=== PATIENT | male | born 1935 | race Caucasian/White ===

== ENCOUNTER 2017-11-16 09:08 | Emergency (ER) | payer MEDICARE, BC ==
[2017-11-16] MEDS ORDERED: Sodium Chloride 0.9% 1,000 ML IV ONE (09:22)
[2017-11-16 09:29] VITALS: BMI 27.1
[2017-11-16 09:37] VITALS: TEMP 98.3
--- NOTE | 2017-11-16 09:53 | C.PDOC ---
History Of Present Illness 82-year-old male, presents to the emergency department via BLS with complaints of bilateral nose bleed. As per , patient has a Hx of dementia and had a nose bleed this morning. Patient received the flu shot and has not been acting himself since. (-) fever Time Seen by Provider: 11/16/17 09:10 Chief Complaint (Nursing): ENT Problem History Per: Patient History/Exam Limitations: no limitations Current Symptoms Are (Timing): Still Present Severity: Mild Past Medical History Reviewed: Historical Data, Nursing Documentation, Vital Signs Vital Signs: Last Vital Signs Temp 98.3 F 11/16/17 09:15 Pulse 98 H 11/16/17 09:15 Resp 18 11/16/17 09:15 BP 126/71 11/16/17 09:15 Pulse Ox 99 11/16/17 09:15 - Medical History PMH: Dementia, Pneumonia, TIA (5 years ago) Surgical History: Appendectomy Family History: States: No Known Family Hx - Social History Hx Tobacco Use: No Hx Alcohol Use: No Hx Substance Use: No - Immunization History Hx Tetanus Toxoid Vaccination: No Hx Influenza Vaccination: Yes Hx Pneumococcal Vaccination: Yes Review Of Systems Constitutional: Negative for: Fever Genitourinary: Negative for: Dysuria Physical Exam - Physical Exam Appears: Non-toxic, No Acute Distress Skin: Warm, Dry, No Rash Head: Atraumatic, Normacephalic Eye(s): bilateral: Normal Inspection, PERRL, EOMI Nose: Epistaxis Oral Mucosa: Moist Lips: Normal Appearing Throat: Other (no blood visualized in posterior oropharynx) Neck: Normal ROM Cardiovascular: Rhythm Regular, No Murmur Respiratory: Normal Breath Sounds, No Accessory Muscle Use Gastrointestinal/Abdominal: Normal Exam Back: Normal Inspection Extremity: Normal ROM, No Deformity Neurological/Psych: Oriented x3, Normal Speech Gait: Unable To Assess ED Course And Treatment - Laboratory Results Result Diagrams: 11/16/17 09:59 11/16/17 09:59 Lab Interpretation: Normal ECG: Interpreted By Me ECG Rhythm: Sinus Rhythm, 1st Degree HB ECG Interpretation: No Acute Changes Rate From EC O2 Sat by Pulse Oximetry: 99 Pulse Ox Interpretation: Normal (RA) - Radiology CXR: Interpreted by Me CXR Interpretation: Yes: No Acute Disease Progress Note: Treated with IVF NSS. Treated with rocephin IV. On re- evaluation lungs clear Reassessment Condition: Unchanged Disposition Counseled Patient/Family Regarding: Studies Performed, Diagnosis, Need For Followup, Rx Given - Disposition Referrals: Stevie Link MD [Staff Provider] - Disposition: HOME/ ROUTINE Disposition Time: 12:10 Condition: GOOD Additional Instructions: Follow up with your PMD for further evaluation Prescriptions: Sulfamethoxazole/Trimethoprim [Bactrim DS 800 mg-160 mg] 1 tab PO BID #14 tab Instructions: Urinary Tract Infections in Adults, Nosebleeds Forms: [employer] (Yoruba) - POA Present On Arrival: None - Clinical Impression Clinical Impression: Flu-like symptoms, UTI (urinary tract infection) - Scribe Statement The provider has reviewed the documentation as recorded by the Scribe (Gema Johnson) All medical record entries made by the Scribe were at my direction and personally dictated by me. I have reviewed the chart and agree that the record accurately reflects my personal performance of the history, physical exam, medical decision making, and the department course for this patient. I have also personally directed, reviewed, and agree with the discharge instructions and disposition.
[2017-11-16 10:13] LABS: BASO % 0.5 % (0.0-2.0); EOS % 0.8 % (0.0-4.0); HEMOGLOBIN 13.8 g/dL (12.0-18.0); LYMPH % 61.2 % (20.0-40.0); MEAN CELL VOLUME 81.7 fL (80.0-94.0); MEAN CORPUSCULAR HEMOGLOBIN 27.2 pg (27.0-31.0); MEAN CORPUSCULAR HGB CONC 33.3 g/dL (33.0-37.0); MEAN PLATELET VOLUME 7.4 fL (7.2-11.7); MONO # 0.7 K/uL (0.0-0.8); MONO % 14.3 % (0.0-10.0); NEUT # 1.1 K/uL (1.8-7.0); NEUT % 23.2 % (50.0-75.0); NRBC % 0.3 % (0.0-2.0); RBC 5.09 Mil/uL (4.40-5.90); RED CELL DISTRIBUTION WIDTH 14.7 % (11.5-14.5); WHITE BLOOD COUNT 4.9 K/uL (4.8-10.8)
--- NOTE | 2017-11-16 10:18 | RAD ---
Date of service: 11/16/2017 PROCEDURE: CHEST RADIOGRAPH, 1 VIEW HISTORY: SOB COMPARISON: Portable chest 06/03/2015. FINDINGS: LUNGS: Clear. PLEURA: No pneumothorax or pleural fluid seen. CARDIOVASCULAR: Normal. OSSEOUS STRUCTURES: No significant abnormalities. VISUALIZED UPPER ABDOMEN: Normal. OTHER FINDINGS: None. IMPRESSION: No interval acute cardiopulmonary disease appreciated.
[2017-11-16] MEDS ORDERED: Sodium Chloride 0.9% 1,000 ML ONE (10:21)
[2017-11-16 10:31] LABS: ALBUMIN 3.6 g/dL (3.5-5.0); ALT/SGPT 34 U/L (21-72); AST/SGOT 51 U/L (17-59); BLOOD UREA NITROGEN 17 mg/dL (9-20); CALCIUM 8.9 mg/dl (8.6-10.4); GFR NON-AFRICAN AMERICAN > 60; LIPASE 170 U/L (23-300)
[2017-11-16 10:53] LABS: SQUAMOUS EPITHIAL 2 /hpf (0-5); URINE BILIRUBIN NEGATIVE (NEGATIVE); URINE BLOOD NEGATIVE (NEGATIVE); URINE CLARITY Hazy (Clear); URINE COLOR YELLOW (YELLOW); URINE GLUCOSE (UA) NEGATIVE (Normal); URINE LEUKOCYTE ESTERASE MODERATE Leu/uL (Negative); URINE PROTEIN 30 mg/dL (NEGATIVE)
[2017-11-16 10:54] LABS: URINE BACTERIA RARE (<OCC)
[2017-11-16] MEDS ORDERED: cefTRIAXone IV 1 gm in Dextros 50 ML IV ONE (11:23)
[2017-11-16] MEDS ORDERED: cefTRIAXone 1 gm 1 GM/100 ML BAG IVPB ONE (11:38)
[2017-11-16 12:04] VITALS: BP 122/75; PULSE 82; RESP 21
[2017-11-16 12:05] VITALS: O2SAT 99
--- NOTE | 2017-11-18 14:59 | CARD ---
APPROVED REPORT Date of service: 11/16/2017 EKG Measurement Heart [id number] <Conclusion> Sinus rhythm with 1st degree AV block with premature atrial complexes Otherwise normal ECG
== END 2017-11-16 12:22 | disposition home or self-care (01) ==
LOC: C.ER 09:08
DX: J11.1 Influenza due to unidentified influenza virus with other respiratory manifestations (principal); N39.0 Urinary tract infection, site not specified; F03.90 Unspecified dementia, unspecified severity, without behavioral disturbance, psychotic disturbance, mood disturbance, and anxiety; Z87.01 Personal history of pneumonia (recurrent); Z86.73 Personal history of transient ischemic attack (TIA), and cerebral infarction without residual deficits
CPT/HCPCS: 71045; 80053; 81001; 83690; 85025; 87086; 87181; 87804; 93005; 96360; 99283; J0696; J7030

== ENCOUNTER 2018-06-22 09:34 | Inpatient (IN) | payer MEDICARE, BC ==
[2018-06-22 09:35] VITALS: BMI 29.2
--- NOTE | 2018-06-22 09:55 | C.PDOC ---
Time Seen by Provider: 06/22/18 09:51 Chief Complaint (Nursing): Weakness/Neurological Deficit Past Medical History - Medical History PMH: Dementia, Pneumonia, TIA (5 years ago) Surgical History: Appendectomy Family History: States: Unknown Family Hx - Social History Hx Tobacco Use: No Hx Alcohol Use: No Hx Substance Use: No - Immunization History Hx Tetanus Toxoid Vaccination: No Hx Influenza Vaccination: Yes Hx Pneumococcal Vaccination: Yes Disposition - Disposition
--- NOTE | 2018-06-22 10:09 | C.PDOC ---
History Of Present Illness 82 year old male presents to ED with for evaluation of increasing altered mental status, confusion, generalized weakness, decreased eating and drinking for the past 2 weeks that worsened yesterday. Patient history limited due to dementia. Patient had vomiting and diarrhea last week that resolved for 4 days. Patient's baseline is dementia, usually recognizes family but states that "he hasn't known the date in years." Patient is currently unable to recognize family and has been experiencing hallucinations. At baseline, he is able to use his walker, but now is unable to stand due to generalized weakness. Patient's denies fever. LIMITED DUE TO DEMENTIA HX PER INCREASING AMS, CONFUSION, GEN WEAKNESS, DECR EATING AND DRINKING X 2 WEEKS, WORSE YEST. RECENT VOMITING DIARRHEA LAST WEEK, RESOLVED X 4 DAYS. NO FEVER. BASELINE DEMENTIA, USUALLY RECOGNIZES FAMILY "BUT HE HASN'T KNOWN THE DATE IN YEARS". NOW DOESN'T RECOGNIZE, +HALLUCINATIONS. BASELIN ABLE TO USE WALKER BUT NOW CAN'T STAND DUE TO GEN WEAKNESS. ROS UTO EXAM NONTOXIC HEENT ATRAUM MM DRY LUNGS CTA B/L NO W/R/R CV RRR EXT AROM WO DIFF NEURO AWAKE ALERT INTERACTIVE SPEAKING ENGLISH, CONFUSED PER FAMILY PSYCH CALM COOPERATIVE REMAINDER NEG MDM AMS DELIRIUM RO INFXN, NEURO CAUSE. Time Seen by Provider: 06/22/18 09:51 Chief Complaint (Nursing): Weakness/Neurological Deficit History Per: Patient, Family () History/Exam Limitations: Clinical Condition Onset/Duration Of Symptoms: Other (2 weeks) Current Symptoms Are (Timing): Still Present Usual Baseline: Amb W/Assist Decreased Ability To: Walk Associated Symptoms: Not Eating, Not Drinking, Weakness Past Medical History Reviewed: Historical Data, Nursing Documentation, Vital Signs Vital Signs: Last Vital Signs Temp 98.1 F 06/22/18 09:52 Pulse 90 06/22/18 09:52 Resp 22 06/22/18 09:52 BP 145/72 06/22/18 09:52 Pulse Ox 98 06/22/18 09:52 Primary Care Provider: Stevie Link - Medical History PMH: Dementia, Pneumonia, TIA Surgical History: Appendectomy Family History: States: Unknown Family Hx - Social History Hx Tobacco Use: No Hx Alcohol Use: No Hx Substance Use: No - Immunization History Hx Tetanus Toxoid Vaccination: No Hx Influenza Vaccination: Yes Hx Pneumococcal Vaccination: Yes Review Of Systems Review Of Systems: ROS cannot be obtained secondary to pt's inabilty to answer questions. Physical Exam - Physical Exam Appears: Non-toxic, No Acute Distress Skin: Normal Color, Warm, Dry Head: Atraumatic, Normacephalic Eye(s): bilateral: Normal Inspection, PERRL, EOMI Oral Mucosa: Dry Neck: Normal ROM, Supple Chest: Symmetrical, No Deformity Cardiovascular: Rhythm Regular, No Murmur Respiratory: No Accessory Muscle Use, No Rales, No Rhonchi, No Wheezing, Other (NARD) Gastrointestinal/Abdominal: Soft, No Tenderness Extremity: Capillary Refill (<2 seconds) Extremity: Bilateral: Atraumatic, Normal Color And Temperature, Normal ROM Pulses: Left Radial: Normal, Right Radial: Normal Neurological/Psych: Other (awake, alert, interactive, speaking Japanese, confused per family; calm, cooperative) ED Course And Treatment - Laboratory Results Result Diagrams: 06/22/18 10:27 06/22/18 10:27 ECG: Interpreted By Me ECG Rhythm: Atrial Fibrillation ECG Interpretation: Abnormal Interpretation Of ECG: NEW ONSET COMPARED TO 2016 Rate From EC O2 Sat by Pulse Oximetry: 98 (in RA) Pulse Ox Interpretation: Normal - Radiology CXR: Interpreted by Me, Viewed By Dc CXR Interpretation: Yes: No Acute Disease Nexus Criteria: Negative - CT Scan/US Head CT Other Rad Studies (CT/US): Read By Radiologist CT/US Interpretation: IMPRESSION: No acute intracranial abnormality. Diffuse generalized parenchymal atrophy. Chronic microvascular ischemic changes. If symptoms persists, consider correlation with MRI. Progress Note: VBG, Head CT, and CXR ordered for patient. CMP, CBC, blood culture, urine culture, and UA ordered for patient. Patient given IV fluids. Progress - Re-Evaluation Re-evaluation Note: 06/22/18 10:47 PT UNCOOP FOR PORT CXR. WILL SEDATE FOR RADIOLOGIC STUDIES DOES NOT MEET CODE SEPSIS CRITERIA. PENDING LABS 06/22/18 12:05 D/W DR LINK WILL ADMIT - Data Reviewed Data Reviewed: Lab, Diagnostic imaging, EKG, Old records Medical Decision Making Medical Decision Making: Altered Mental Status Delirium rule out infection. Neurological cause NEW ONSET ATRIAL FIB COMPARED TO PRIOR EKG. RATE CONTROLLED, UNK DURATION. Disposition Counseled Patient/Family Regarding: Studies Performed, Diagnosis - Disposition Disposition: HOSPITALIZED Disposition Time: 12:06 Condition: STABLE - POA Present On Arrival: Poor Glycemic Control - Clinical Impression Clinical Impression: UTI (urinary tract infection), Dementia, Altered mental state, Difficulty walking, New onset atrial fibrillation - Scribe Statement The provider has reviewed the documentation as recorded by the Scribe (Melissa Garcia) All medical record entries made by the Scribe were at my direction and personally dictated by me. I have reviewed the chart and agree that the record accurately reflects my personal performance of the history, physical exam, medical decision making, and the department course for this patient. I have also personally directed, reviewed, and agree with the discharge instructions and disposition.
[2018-06-22] MEDS ORDERED: Sodium Chloride 0.9% 1,000 ML IV ONE ×2 (10:15→10:46)
[2018-06-22 10:32] LABS: BASO % 0.2 % (0.0-2.0); HEMOGLOBIN 14.4 g/dL (12.0-18.0); LYMPH # 2.5 K/uL (1.0-4.3); LYMPH % 36.4 % (20.0-40.0); MEAN CELL VOLUME 81.5 fL (80.0-94.0); MEAN CORPUSCULAR HEMOGLOBIN 27.5 pg (27.0-31.0); MEAN CORPUSCULAR HGB CONC 33.8 g/dL (33.0-37.0); MONO # 0.9 K/uL (0.0-0.8); MONO % 13.4 % (0.0-10.0); NEUT # 3.4 K/uL (1.8-7.0); NRBC % 0.1 % (0.0-2.0); RBC 5.24 Mil/uL (4.40-5.90); RED CELL DISTRIBUTION WIDTH 14.7 % (11.5-14.5); WHITE BLOOD COUNT 6.8 K/uL (4.8-10.8)
[2018-06-22] MEDS ORDERED: Sodium Chloride 0.9% 1,000 ML ONE ×2 (10:39→10:54)
[2018-06-22 10:44] LABS: VENOUS BLOOD GAS BASE EXCESS 2.4 mmol/L (0.0-2.0); VENOUS BLOOD GAS PCO2 51 mmHg (40-60); VENOUS BLOOD GAS PO2 15 mm/Hg (30-55); VENOUS BLOOD PH 7.36 (7.32-7.43)
[2018-06-22 10:46] LABS: ALBUMIN 4.2 g/dL (3.5-5.0); ALT/SGPT 44 U/L (21-72); AST/SGOT 58 U/L (17-59); BLOOD UREA NITROGEN 16 mg/dL (9-20); CALCIUM 9.3 mg/dl (8.6-10.4); GFR NON-AFRICAN AMERICAN > 60
[2018-06-22 10:47] LABS: URINE BACTERIA OCC (<OCC); URINE BILIRUBIN NEGATIVE (NEGATIVE); URINE BLOOD 2+ (NEGATIVE); URINE CLARITY Hazy (Clear); URINE COLOR Amber (YELLOW); URINE GLUCOSE (UA) NORMAL (Normal); URINE LEUKOCYTE ESTERASE 1+ Leu/uL (Negative); URINE PROTEIN 2+ mg/dL (NEGATIVE)
[2018-06-22] MEDS ORDERED: cefTRIAXone IV 1 gm in Dextros 50 ML IV STA (11:06)
--- NOTE | 2018-06-22 11:17 | RAD ---
Date of service: 06/22/2018 PROCEDURE: CHEST RADIOGRAPH, 1 VIEW HISTORY: AMS COMPARISON: 11/16/2017 FINDINGS: LUNGS: The lungs are well inflated and clear. PLEURA: No pneumothorax or pleural effusion. CARDIOVASCULAR: The heart is normal in size. There are aortic atherosclerotic calcifications present. OSSEOUS STRUCTURES: Within normal limits for the patient's age. VISUALIZED UPPER ABDOMEN: Normal. OTHER FINDINGS: None. IMPRESSION: No active pulmonary disease.
--- NOTE | 2018-06-22 11:41 | CT ---
Date of service: 06/22/2018 PROCEDURE: CT HEAD WITHOUT CONTRAST. HISTORY: Altered mental status COMPARISON: 04/10/2015 TECHNIQUE: Axial computed tomography images were obtained through the head/brain without intravenous contrast. Radiation dose: Total exam DLP = 961.72 mGy-cm. This CT exam was performed using one or more of the following dose reduction techniques: Automated exposure control, adjustment of the mA and/or kV according to patient size, and/or use of iterative reconstruction technique. FINDINGS: HEMORRHAGE: No intracranial hemorrhage. BRAIN: No mass effect or edema. Scattered focal lucencies in the subcortical and periventricular white matter suggestive for chronic microvascular ischemic change. Diffuse generalized parenchymal atrophy. VENTRICLES: Prominent. CALVARIUM: Unremarkable. PARANASAL SINUSES: Unremarkable as visualized. No significant inflammatory changes. MASTOID AIR CELLS: Unremarkable as visualized. No inflammatory changes. OTHER FINDINGS: None. IMPRESSION: No acute intracranial abnormality. Diffuse generalized parenchymal atrophy. Chronic microvascular ischemic changes. If symptoms persists, consider correlation with MRI.
[2018-06-23 08:38] LABS: HEMOGLOBIN 12.6 g/dL (12.0-18.0); MEAN CELL VOLUME 81.8 fL (80.0-94.0); MEAN CORPUSCULAR HEMOGLOBIN 27.4 pg (27.0-31.0); MEAN CORPUSCULAR HGB CONC 33.5 g/dL (33.0-37.0); MEAN PLATELET VOLUME 8.7 fL (7.2-11.7); RBC 4.59 Mil/uL (4.40-5.90); RED CELL DISTRIBUTION WIDTH 14.5 % (11.5-14.5); WHITE BLOOD COUNT 6.4 K/uL (4.8-10.8)
[2018-06-23 08:59] LABS: AST/SGOT 56 U/L (17-59)
[2018-06-23 09:00] LABS: ALB/GLOB RATIO 0.9 (1.0-2.1); ALBUMIN 3.1 g/dL (3.5-5.0); ALT/SGPT 40 U/L (21-72); CALCIUM 8.6 mg/dl (8.6-10.4); GFR NON-AFRICAN AMERICAN > 60
[2018-06-23 09:12] LABS: BLOOD UREA NITROGEN 25 mg/dL (9-20)
[2018-06-23] MEDS: cefTRIAXone IV 1 gm in Dextros 50 ML IVPB SCH (10:06)
--- NOTE | 2018-06-23 13:43 | CP.PCM.CON ---
History of Present Illness - History of Present Illness History of Present Illness: Neurology Consultation Note: Consult requested by Dr. Link The patient is an 82-year-old man with a past medical history of dementia who has been more confused over the last 2 weeks, with decreased PO intake. He is having difficulty recognizing family members. Labs showed a UTI and he was started on Rocephin. Non-contrast CT scan of the head did not show any acute findings. Neurology was consulted for AMS. Review of Systems - Review of Systems Systems not reviewed;Unavailable: Altered Mental Status Past Patient History - Past Medical History & Family History Past Medical History?: Yes - Past Social History Smoking Status: Never Smoked - PULMONARY Hx Pneumonia: Yes - NEUROLOGICAL HX Cerebrovascular Accident: Yes Hx Dementia: Yes Hx Transient Ischemic Attacks (TIA): Yes - HEENT Hx Cataracts: Yes - HEMATOLOGICAL/ONCOLOGICAL Hx Hepatitis C: Yes Other/Comment: "LIVER MASS" - INTEGUMENTARY Other/Comment: DRY SKIN - MUSCULOSKELETAL/RHEUMATOLOGICAL Hx Falls: Yes (2 years ago) - GENITOURINARY/GYNECOLOGICAL Hx Prostate Problems: Yes - PSYCHIATRIC Hx Substance Use: No - SURGICAL HISTORY Other/Comment: Hair transplant with scar to back of head - ANESTHESIA Hx Anesthesia: Yes Hx Anesthesia Reactions: No Hx Malignant Hyperthermia: No Meds Allergies/Adverse Reactions: Allergies Allergy/AdvReac Type Severity Reaction Status Date / Time No Known Allergies Allergy Verified 06/22/18 09:55 - Medications Medications: Current Medications Aspirin (Aspirin Chewable) 81 mg PO DAILY [facility] Heparin Sodium (Porcine) (Heparin) 5,000 units SC Q12 [facility] Last Admin: 06/23/18 10:09 Dose: 5,000 units Ceftriaxone Sodium (Rocephin Iv 1 Gm Duplex) 50 mls @ 100 mls/hr IVPB DAILY [facility]; Protocol Last Admin: 06/23/18 10:06 Dose: 100 mls/hr Physical Exam - Constitutional Appears: Well, Chronically Ill - Head Exam Head Exam: ATRAUMATIC, NORMAL INSPECTION, NORMOCEPHALIC - Eye Exam Eye Exam: EOMI, Normal appearance, PERRL Pupil Exam: NORMAL ACCOMODATION, PERRL - ENT Exam ENT Exam: Mucous Membranes Moist, Normal Exam - Neck Exam Neck exam: Positive for: Normal Inspection - Respiratory Exam Respiratory Exam: Clear to Auscultation Bilateral, NORMAL BREATHING PATTERN - Cardiovascular Exam Cardiovascular Exam: REGULAR RHYTHM, +S1, +S2 - GI/Abdominal Exam GI & Abdominal Exam: Normal Bowel Sounds, Soft. absent: Tenderness - Extremities Exam Extremities exam: Positive for: normal inspection - Back Exam Back exam: NORMAL INSPECTION - Neurological Exam Neurological exam: Abnormal Gait, Altered, CN II-XII Intact, Reflexes Normal Additional comments: Confused, demented, generalized weakness, gait not tested. - Psychiatric Exam Psychiatric exam: Normal Affect, Normal Mood - Skin Skin Exam: Dry, Intact, Normal Color, Warm Results - Vital Signs Recent Vital Signs: Last Vital Signs Temp 101.2 F H 06/23/18 07:05 Pulse 96 H 06/23/18 07:05 Resp 20 06/23/18 07:05 BP 104/66 06/23/18 07:05 Pulse Ox 94 L 06/23/18 07:05 - Labs Result Diagrams: 06/23/18 08:27 06/23/18 08:27 Labs: Laboratory Results - last 24 hr 06/22/18 06/23/18 06/23/18 22:52 08:27 08:27 WBC 6.4 RBC 4.59 Hgb 12.6 Hct 37.5 MCV 81.8 MCH 27.4 MCHC 33.5 RDW 14.5 Plt Count 95 L D MPV 8.7 Differential Comment Sodium Potassium Chloride Carbon Dioxide Anion Gap BUN Creatinine Est GFR ( Amer) Est GFR (Non-Af Amer) Random Glucose Calcium Total Bilirubin AST ALT Alkaline Phosphatase Ammonia 13 Total Protein Albumin Globulin Albumin/Globulin Ratio TSH 3rd Generation 0.93 06/23/18 08:27 WBC RBC Hgb Hct MCV MCH MCHC RDW Plt Count MPV Differential Comment Sodium 135 Potassium 3.9 Chloride 106 Carbon Dioxide 22 Anion Gap 11 BUN 25 H Creatinine 0.9 Est GFR ( Amer) > 60 Est GFR (Non-Af Amer) > 60 Random Glucose 98 D Calcium 8.6 Total Bilirubin 1.0 AST 56 ALT 40 Alkaline Phosphatase 82 Ammonia Total Protein 6.5 Albumin 3.1 L D Globulin 3.4 Albumin/Globulin Ratio 0.9 L TSH 3rd Generation Assessment & Plan (1) Toxic metabolic encephalopathy Assessment and Plan: Likely due to UTI and baseline dementia. No focal findings on exam. Unlikely to be seizure. Stroke is not noted on CT head and the patient's symptoms have been ongoing for 2 weeks. I recommend treatment of infection and evaluation for PT/OT and cognitive therapy. Thank you. Status: Acute
--- NOTE | 2018-06-23 16:37 | HP ---
HISTORY OF PRESENT ILLNESS: This is an 82-year-old [place] male with history of multiple medical problems including hepatitis C, was brought to emergency room by his because of noticed changes of level of alertness and the patient was not eating as well as not able to ambulate as he was in his baseline. The patient was evaluated in emergency room and was found to be lethargic, was noticed to have urinary tract infection. Blood work otherwise was unremarkable except for mildly elevated bilirubin. History is taken from the at the bedside and the patient is lethargic and falls asleep during the conversation. PAST MEDICAL HISTORY: Dementia, hepatitis C and hepatocellular carcinoma. SOCIAL HISTORY: No history of smoking, EtOH or substance abuse. FAMILY HISTORY: Not contributory. MEDICATIONS: As per MAR were reviewed and ordered. PHYSICAL EXAMINATION: GENERAL: The patient is not in cardiopulmonary distress. VITAL SIGNS: Blood pressure 102/61, temperature 97.9, respiratory rate 20 and pulse 73. HEENT: Pupils equal, reactive to light. Normal-appearing mucosa of the conjunctivae, oropharyngeal and nasal membrane mucosa. NECK: Supple. No JVD. No carotid bruit. No lymph node. No thyromegaly. CHEST AND LUNGS: Bilateral symmetrical expansion. Good air exchange. No rales. No rhonchi. CARDIOVASCULAR SYSTEM: PMI not localized. S1 and S2. No additional sounds. ABDOMEN: Normoactive bowel sounds. No tenderness. No organomegaly. No masses. EXTREMITIES: No cyanosis. No clubbing. No edema. HANGING FLAGS DECORATOR: Alert, awake, oriented x2 and the patient was moving all extremities equally. During the time of examination, the patient was noticed also to have convulsions on the left side of the body of the left upper extremities. ASSESSMENT: Acute change of baseline mental status in the form of lethargy and decreased oral intake as well as inability to ambulate as he was. Differential diagnoses include: 1. Seizures with postictal. 2. Transient ischemic attack/cerebrovascular accident. 3. Symptomatic urinary tract infection. PLAN: We will start the patient on IV antibiotics and do neurology consult and cardiology consult. We will repeat the CAT scan. The patient also was found to be in atrial fibrillation with controlled ventricular rate and we will monitor. Discussed the patient's condition with at the bedside in detail. [facility] MD [facility] # [id number]
--- NOTE | 2018-06-23 23:53 | PN ---
DATE: 06/23/2018 SUBJECTIVE: The patient is seen today, 06/23/2018. He is not in any cardiopulmonary distress and the patient is more awake and responsive today. PHYSICAL EXAMINATION: VITAL SIGNS: Blood pressure 109/63, temperature 98.2, respiratory rate 20 and pulse 84. HEENT: Pupils equal and reactive to light. Normal-appearing mucosa of the conjunctivae, oropharynx and nasal membrane mucosa. NECK: Supple. No JVD. No carotid bruit. No lymph node. No thyromegaly. CHEST AND LUNGS: Bilateral symmetrical expansion. Good air exchange. No rales. No rhonchi. CARDIOVASCULAR SYSTEM: PMI not localized. S1 and S2. No additional sounds. ABDOMEN: Normoactive bowel sounds. No tenderness, no organomegaly, no masses. EXTREMITIES: No cyanosis, no clubbing, no edema. SHADE CLASSIFIER: The patient is awake and alert, but confused and disoriented to person, time and place. Moves all extremities equally. ASSESSMENT: 1. Acute change of mental status, likely secondary to toxic metabolic encephalopathy, in addition of progressive dementia. 2. History of hepatocellular carcinoma. 3. History of hepatitis C. 4. Advanced dementia. PLAN: Continue current IV antibiotics and follow with both Cardiology and Neurology. Stevie Link MD
--- NOTE | 2018-06-24 03:03 | CON ---
DATE: 06/23/2018 CARDIOLOGY CONSULTATION REASON FOR CONSULTATION: Atrial fibrillation. HISTORY OF PRESENT ILLNESS: The patient is an 82-year-old [place] male, who was initially consulted for altered mental status and generalized weakness with decreased appetite. EKG was reported to be atrial fibrillation. The patient's baseline status that he has dementia and he is able to ambulate with assistance and with a walker. Lately, the patient has worsening of his confusion and at times hallucinations with being apparently . SOCIAL HISTORY: The patient lives with his . MEDICATIONS: Subcutaneous heparin 5000 intravenous every 12 hours, IV Rocephin 1 g daily. REVIEW OF SYSTEMS: No reported seizures. No reported hypertension. The patient had a fever yesterday of 101.1. HOME MEDICATIONS: Include Namenda 10 mg twice a day, vitamin B12 of 2.5 mg p.o. daily, multivitamin one tablet daily. PHYSICAL EXAMINATION: GENERAL: The patient is an elderly male who is lethargic, but arousable and confused and does not appear to be in respiratory distress. VITAL SIGNS: Blood pressure 99/66, heart rate 98, temperature 101.2, and respirations 20. HEENT: Normocephalic. CHEST: Diminished breath sounds bilaterally. HEART: S1, S2. Regular. ABDOMEN: Soft. EXTREMITIES: No edema. LABORATORY DATA: SMA-7: Sodium 135, potassium 3.9, chloride 106, CO2 of 22, glucose 98, BUN 25, creatinine 0.9. TSH level is within normal limits, 0.93. Today's hemoglobin and hematocrit at 12.8 and 37.5. White count 6.4, platelet count 95,000. Head CT scan without contrast, no acute intracranial abnormality. Diffuse generalized parenchymal atrophy. Chronic microvascular ischemic changes. Admitting EKG revealed sinus rhythm with marked sinus arrhythmia with first-degree AV block and old inferior infarct. Chest x-ray: The report is unremarkable. ASSESSMENT: 1. Abnormal electrocardiogram with evidence of first-degree atrioventricular block, frequent APC's and old inferior infarct. The computer reading of atrial fibrillation is read, and I did review written instructions, which they are all consistent with sinus rhythm with first-degree atrioventricular block and frequent APC's, occasionally runs of Mobitz I second-degree atrioventricular block. 2. Rule out acute cerebrovascular accident. 3. Mild thrombocytopenia. 4. Fever, rule out underlying sepsis. The urine culture was positive for gram-negative rods. RECOMMENDATIONS: Continue current IV Rocephin at 1 g daily, continue subcutaneous heparin 5000 intravenous every 12 hours, start aspirin 81 mg once a day. Follow up blood cultures, which were taken yesterday. Juanjo Diaz MD
[2018-06-24] MEDS: Multiple Vitamins Tab PO SCH (09:56)
[2018-06-24] MEDS: cefTRIAXone IV 1 gm in Dextros 50 ML IVPB SCH (09:56)
--- NOTE | 2018-06-24 13:50 | CARD ---
APPROVED REPORT Date of service: 06/23/2018 EXAM: Two-dimensional and M-mode echocardiogram with Doppler and color Doppler. Other Information Quality : LimitedTechnically LimitedRhythm : INDICATION CVA/TIA Atrial Fibrillation Pneumonia 2D DIMENSIONS IVSd1.0 (0.7-1.1cm)LVDd3.9 (3.9-5.9cm) PWd1.0 (0.7-1.1cm)LA Yhzpdx34 (18-58mL) LVDs2.9 (2.5-4.0cm)FS (%) 23.9 % LVEF (%)58.0 (>50%)LVEF (Lott's)63.33 % M-Mode DIMENSIONS Left Atrium (MM)3.87 (2.5-4.0cm)Aortic Root3.51 (2.2-3.7cm) Aortic Cusp Exc.1.68 (1.5-2.0cm) Mitral Valve MV E Ajyoehzg32.5cm/sMV A Btxmtwou33.2cm/sE/A ratio1.0 TDI Lateral E' Peak V8.87cm/sMedial E' Peak V7.26cm/sE/Lateral E'6.9 E/Medial E'8.5 Tricuspid Valve TR Peak Rhlayyds013jk/sTR Peak Gr.[id number] <Conclusion> tds. poor window. lv is off axis. la,lv & ra rv size appears normal. nomral lv wall motion,thickness,systolic & diastolic funciton with lvef of 60-65%. sclerotic aortic leaflets. mitral & tv appears normal. trace ai.mild tr with normal pulmonary systolic pressures of 29 mm of hg. no pericardial effusion seen. normal size ivc & aortic root.
--- NOTE | 2018-06-24 14:20 | CARD ---
APPROVED REPORT Date of service: 06/22/2018 EKG Measurement Heart [id number] <Conclusion> baseline artifact. possible a,fib. Left axis deviation Inferior-posterior infarct, age undetermined Abnormal ECG
--- NOTE | 2018-06-24 21:53 | PN ---
DATE: 06/24/2018 SUBJECTIVE: The patient is confused, but he does not appear to be in any distress. PHYSICAL EXAMINATION: VITAL SIGNS: Blood pressure 116/66, heart rate 87, temperature 98.7, respirations 20. HEENT: Normocephalic. CHEST: Diminished breath sounds. HEART: S1 and S2 regular. ABDOMEN: Soft. EXTREMITIES: Trace leg edema. LABORATORY DATA: Today's blood sugar is 103. Albumin level yesterday is below normal at 3.1. Echocardiographic study report revealed poor window, normal ejection fraction, pulmonary hypertension. I did review the neurology evaluation by Dr. Peace and assessment likely due to UTI, baseline dementia, unlikely seizures, stroke is not the CT scan. ASSESSMENT: 1. Altered mental status. 2. Urinary tract infection with Escherichia coli. 3. Abnormal EKG with evidence of first-degree atrioventricular block, frequent premature ventricular contractions, and periods of Mobitz I second-degree atrioventricular block without significant bradycardia. 4. Mild thrombocytopenia. RECOMMENDATIONS: Continue aspirin 81 mg once a day and IV Rocephin at 1 g daily. I agree with withholding subcutaneous heparin for now. Obtain followup CBC and BMP in the a.m. Juanjo Diaz MD
--- NOTE | 2018-06-24 22:44 | PN ---
DATE: 06/24/2018 SUBJECTIVE: The patient is seen today, 06/24/2018. He is more awake, but he is disoriented. PHYSICAL EXAMINATION: VITAL SIGNS: Blood pressure 111/72, temperature 97.9, respiratory rate 18, and pulse 82. HEENT: Pupils equal, reactive to light. Normal-appearing mucosa of the conjunctivae, oropharynx, and nasal membrane mucosa. NECK: Supple, no JVD, no carotid bruits, no lymph nodes, no thyromegaly. CHEST AND LUNGS: Bilateral symmetrical expansion, good air exchange. No rales, no rhonchi. CARDIOVASCULAR SYSTEM: PMI not localized. S1 and S2. No additional sounds. ABDOMEN: Normoactive bowel sounds. No tenderness, no organomegaly, no masses. EXTREMITIES: No cyanosis, no clubbing, no edema. CENTRAL NERVOUS SYSTEM: The patient is awake, but disoriented to person, time, and place. Moves all extremities equally. ASSESSMENT: 1. Acute change of mental status, likely secondary to toxic metabolic encephalopathy secondary to urinary tract infection. 2. Urinary tract infection. 3. Hepatic cell carcinoma. 4. Liver cirrhosis. 5. Dementia. PLAN: Continue current IV antibiotics, fall precaution, physical therapy. Forrest MD Nikolay
[2018-06-25 07:30] LABS: HEMOGLOBIN 12.2 g/dL (12.0-18.0); MEAN CELL VOLUME 80.4 fL (80.0-94.0); MEAN CORPUSCULAR HEMOGLOBIN 26.9 pg (27.0-31.0); MEAN CORPUSCULAR HGB CONC 33.5 g/dL (33.0-37.0); MEAN PLATELET VOLUME 7.8 fL (7.2-11.7); RBC 4.54 Mil/uL (4.40-5.90); RED CELL DISTRIBUTION WIDTH 14.4 % (11.5-14.5); WHITE BLOOD COUNT 4.4 K/uL (4.8-10.8)
[2018-06-25 07:52] LABS: BLOOD UREA NITROGEN 14 mg/dL (9-20); CALCIUM 8.8 mg/dl (8.6-10.4); GFR NON-AFRICAN AMERICAN > 60
[2018-06-25] MEDS: Multiple Vitamins Tab PO SCH (09:28)
[2018-06-25] MEDS: cefTRIAXone IV 1 gm in Dextros 50 ML IVPB SCH (09:42)
--- NOTE | 2018-06-25 18:24 | PN ---
DATE: 06/25/2018 SUBJECTIVE: The patient is confused and refuses to take his medications or eat his food. I myself tried to offer him the medications mixed with some fruits. He refused. He does not appear to be in any distress and he is in sinus rhythm with first-degree AV block and frequent PVCs on the monitor. PHYSICAL EXAMINATION: VITAL SIGNS: Blood pressure 121/67, heart rate 76, temperature 98.6, respirations 20. HEENT: Normocephalic. CHEST: Clear. HEART: S1, S2, regular. ABDOMEN: Soft. EXTREMITIES: No edema. LABORATORY DATA: Today's hemoglobin and hematocrit 12.1 and 36.4, white count 4.4, platelet count 119,000. Today's SMA-7 is entirely within normal limits. ASSESSMENT: 1. Questionable atrial fibrillation, which has not been documented yet. The patient is in sinus rhythm with first-degree atrioventricular block and frequent premature ventricular contractions. 2. 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 3. Hepatocellular carcinoma. 4. Liver cirrhosis. 5. Dementia. 6. Escherichia coli urinary tract infection. 7. Improving thrombocytopenia. RECOMMENDATIONS: Continue IV Rocephin at 1 g daily, aspirin 81 mg once a day, Namenda 10 mg twice a day. May resume subcutaneous Lovenox at 30 mg daily. Juanjo Diaz MD
--- NOTE | 2018-06-25 19:43 | PN ---
DATE: 06/25/2018 SUBJECTIVE: The patient is seen today, 06/25/2018. He continued to improve at the level of awareness. PHYSICAL EXAMINATION: VITAL SIGNS: Blood pressure 121/67, temperature 98.6, respiratory rate 20 and pulse 76. HEENT: Pupils equal, reactive to light. Normal-appearing mucosa of the conjunctivae, oropharynx and nasal membrane mucosa. NECK: Supple. No JVD, no carotid bruit. No lymph node. No thyromegaly. CHEST AND LUNGS: Bilateral symmetrical expansion. Good air exchange. No rales, no rhonchi. CARDIOVASCULAR SYSTEM: PMI not localized. S1 and S2. No additional sounds. ABDOMEN: Normoactive bowel sounds. No tenderness, no organomegaly. No masses. EXTREMITIES: No cyanosis, no clubbing, no edema. CENTRAL NERVOUS SYSTEM: Alert. The patient is awake but he is disoriented to person, time and place and moves all extremities equally. ASSESSMENT: Acute toxic metabolic encephalopathy, urinary tract infection, dementia, hepatocellular carcinoma, history hepatitic C. PLAN: Continue physical therapy and plan to discharge the patient to subacute rehabilitation as the patient is high risk for fall. Continue current antibiotic. Stevie Link MD
[2018-06-26 08:23] VITALS: O2SAT 95
[2018-06-26] MEDS: Multiple Vitamins Tab PO SCH (10:28)
[2018-06-26] MEDS: cefTRIAXone IV 1 gm in Dextros 50 ML IVPB SCH (10:37)
[2018-06-26 15:26] VITALS: BP 103/66; PULSE 83; RESP 18; TEMP 97.5
--- NOTE | 2018-06-26 15:29 | CARD ---
APPROVED REPORT Date of service: 06/22/2018 EKG Measurement Heart [id number] <Conclusion> Atrial fibrillation Left axis deviation Low voltage QRS Inferior infarct, age undetermined Abnormal ECG
--- NOTE | 2018-06-26 17:49 | CP.PCM.PN ---
Subjective - Date & Time of Evaluation Date of Evaluation: 06/26/18 Time of Evaluation: 11:00 - Subjective Subjective: alert, awake, confused, no acute agitation or distress. Objective - Vital Signs/Intake and Output Vital Signs (last 24 hours): Temp Pulse Resp BP Pulse Ox 97.5 F L 83 18 103/66 95 06/26/18 15:24 06/26/18 15:24 06/26/18 15:24 06/26/18 15:24 06/26/18 15:24 - Medications Medications: Current Medications Aspirin (Aspirin Chewable) 81 mg PO DAILY [facility] Last Admin: 06/26/18 10:28 Dose: 81 mg Donepezil HCl (Aricept) 10 mg PO DAILY [facility] Last Admin: 06/26/18 10:28 Dose: 10 mg Ceftriaxone Sodium (Rocephin Iv 1 Gm Duplex) 50 mls @ 100 mls/hr IVPB DAILY [facility]; Protocol Last Admin: 06/26/18 10:37 Dose: 100 mls/hr Memantine (Namenda) 10 mg PO BID [facility] Last Admin: 06/26/18 17:34 Dose: 10 mg Multivitamins (Hexavitamin) 1 tab PO DAILY [facility] Last Admin: 06/26/18 10:28 Dose: 1 tab - Labs Labs: 06/25/18 07:20 06/25/18 07:20 Assessment and Plan - Assessment and Plan (Free Text) Assessment: Patient is seen and examined. 82 year old male admitted with questionable afib, dementia, awake, confused, needs total care. Discussed with DR Link, plan to discharge to [facility] for rehab. Will continue with rocephin iv for 5 days more for UTI. Family at the bedside, no acute distress.
--- NOTE | 2018-06-26 20:20 | PN ---
DATE: 06/26/2018 SUBJECTIVE: The patient is confused. Does not appear to be in any distress. PHYSICAL EXAMINATION: VITAL SIGNS: Blood pressure 103/66, heart rate 83, temperature 97.5, respirations 18. HEENT: Normocephalic. CHEST: Diminished breath sounds bilaterally. HEART: S1 and S2 regular. ABDOMEN: Soft. EXTREMITIES: No edema. ASSESSMENT: 1. Questionable atrial fibrillation on EKG. However, so far, there is no documented atrial fibrillation either on EKG or on the awake overnight monitor. 2. Hepatic cell carcinoma. 3. History of hepatitis C. 4. Dementia. 5. Thrombocytopenia. 6. Escherichia coli urinary tract infection. 7. 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 RECOMMENDATIONS: Continue Aricept mg once a day. Aspirin 81 mg once a day. IV Rocephin 1 g daily. The case was discussed with Dr. Link, and the plan is to transfer the patient to subacute rehab. Juanjo Diaz MD
--- NOTE | 2018-06-29 05:11 | DS ---
REASON FOR ADMISSION: This is an 82-year-old [place] male with history of multiple medical problems including hepatitis C, hepatic cell carcinoma, and dementia, was admitted for acute change of baseline mental status. COURSE OF HOSPITALIZATION: The patient was brought to emergency room by who noticed that the patient had significant decrease in oral intake as well as delay in the verbal output as well as the ability to perform the physical tasks that he used to, including, but not limited to holding a spoon to feed himself, ability to stand up and being assisted walk to the bathroom, etc. The patient was evaluated, and he had a CT scan of the head that did not show any significant acute pathology. The patient was found to have urinary tract infection, and urine culture grew E-coli. The patient was started on Rocephin since admission, and it was continued throughout this admission. The patient was also evaluated by physical therapy, and subacute rehabilitation was recommended. The patient was discharged in stable condition after regaining his baseline mental status only by giving him the IV antibiotics. The patient also had neurology and cardiology consultation and evaluation during this admission. has been existing and of help in making discharge planning throughout this admission. The patient was discharged to [facility] for physical therapy and deconditioning and to continue current medications. FINAL DIAGNOSES: 1. Acute toxic metabolic encephalopathy secondary to urinary tract infection. 2. Urinary tract infection. 3. Dementia. 4. Hepatocellular carcinoma. 5. History of hepatitis C. Stevie Link MD
== END 2018-06-26 19:48 | DRG 689 ==
LOC: C.ER 09:34 → C.9E 12:10 → C.5S 13:03 → OBSVTOIN 16:40
PROVIDERS: ADMIT Internal Medicine; ATTEND Internal Medicine
DX: N39.0 Urinary tract infection, site not specified (principal); G92 Toxic encephalopathy; C22.0 Liver cell carcinoma; F03.90 Unspecified dementia, unspecified severity, without behavioral disturbance, psychotic disturbance, mood disturbance, and anxiety; Z86.73 Personal history of transient ischemic attack (TIA), and cerebral infarction without residual deficits; I48.91 Unspecified atrial fibrillation; D69.6 Thrombocytopenia, unspecified; B96.20 Unspecified Escherichia coli [E. coli] as the cause of diseases classified elsewhere; R56.9 Unspecified convulsions; I44.1 Atrioventricular block, second degree; K74.60 Unspecified cirrhosis of liver